=== PATIENT | female | born 2000 | race Caucasian/White ===

== ENCOUNTER 2018-07-14 13:09 | Emergency (ER) | payer MEDICAID ==
[~2018-07-14] VITALS: Ht 152.4 cm; Wt 53.4 kg
[2018-07-14 13:19] VITALS: Ht 152.4 cm; Wt 53.4 kg
--- NOTE | 2018-07-14 17:04 | ERD ---
ER Documentation Chief Complaint Chief Complaint Complina of nose bleed and abdominal pain x 2 days ROS All systems reviewed and are negative except as per history of present illness. Medications Home Meds Active Scripts [id number] ( 19) 1 Each Tablet, 1 TAB PO DAILY, #30 TAB Prov:JIM MUELLER MD 07/14/18 PMhx/Soc Medical and Surgical Hx: pt denies Medical Hx, pt denies Surgical Hx FmHx Family History: No diabetes, No coronary disease Physical Exam Vitals Vital Signs Date Temp Pulse Resp B/P (MAP) Pulse Ox O2 O2 Flow FiO2 Time Delivery Rate 07/14/18 98.5 86 20 119/56 98 13:19 (77) Physical Exam Const: No acute distress Head: Atraumatic Eyes: Normal Conjunctiva ENT: Normal External Ears, Nose and Mouth. Neck: Full range of motion. No meningismus. Resp: Clear to auscultation bilaterally Cardio: Regular rate and rhythm, no murmurs Abd: Soft, non tender, non distended. Normal bowel sounds Skin: No petechiae or rashes Back: No midline or flank tenderness Ext: No cyanosis, or edema Neur: Awake and alert Psych: Normal Mood and Affect Result Diagram: 07/14/18 1714 07/14/18 1714 Results 24 hrs Laboratory Tests Test 07/14/18 17:13 07/14/18 17:14 Bedside Urine pH (LAB) 6.0 Bedside Urine Protein (LAB) Trace Bedside Urine Glucose (UA) Negative Bedside Urine Ketones (LAB) Negative Bedside Urine Blood 1+ Bedside Urine Nitrite (LAB) Negative Bedside Urine Leukocyte Esterase (L Trace White Blood Count 9.7 10^3/ul Red Blood Count 4.54 10^6/ul Hemoglobin 13.6 g/dl Hematocrit 40.0 % Mean Corpuscular Volume 88.1 fl Mean Corpuscular Hemoglobin 30.0 pg Mean Corpuscular Hemoglobin Concent 34.0 g/dl Red Cell Distribution Width 12.5 % Platelet Count 324 10^3/UL Mean Platelet Volume 9.2 fl Immature Granulocytes % 0.500 % Neutrophils % 63.9 % Lymphocytes % 27.1 % Monocytes % 6.4 % Eosinophils % 1.7 % Basophils % 0.4 % Nucleated Red Blood Cells % 0.0 /100WBC Immature Granulocytes # 0.050 10^3/ul Neutrophils # 6.2 10^3/ul Lymphocytes # 2.6 10^3/ul Monocytes # 0.6 10^3/ul Eosinophils # 0.2 10^3/ul Basophils # 0.0 10^3/ul Nucleated Red Blood Cells # 0.0 10^3/ul Sodium Level 140 mmol/L Potassium Level 4.0 mmol/L Chloride Level 104 mmol/L Carbon Dioxide Level 27 mmol/L Anion Gap 9 Blood Urea Nitrogen 16 mg/dl Creatinine 0.49 mg/dl Est Glomerular Filtrat Rate mL/min > 60 mL/min Glucose Level 98 mg/dl Calcium Level 9.8 mg/dl POC Beta HCG, Qualitative POSITIVE Beta HCG, Quantitative 72.1 mIU/ml Departure Diagnosis: Primary Impression: Additional Impression: Pelvic pain affecting Condition: Stable Additional Instructions: Muchas tin por [facility] para neri servicio. Esperamos que en neri visita a la julián de emergencia neri problema medico haya sido solucionado y que se sienta mucho mejor. Para estar seguros que neri mejoria sigue en proceso, le pedimos el favor de hacer rhonda mariama de seguimiento medico con neri doctor primario en los proximos 2-4 josue. Lleve con usted estos documentos y las medicinas recetadas. Si isis sintomas empeoran, NO SE ESPERE, por favor regrese a julián de emergencia INMEDIATAMENTE. En scottie que usted no tenga un mdico de atencin primaria: Llame al mdico o clnica comunitaria de referencia que aparece abajo chloe las horas de consultorio para hacer rhonda mariama para que le vean. CLINICAS: [facility] [phone] [facility] [phone] [facility] [phone] [facility] [phone] [facility] [phone] [id number] [facility] [phone] JIM PADILLA MD Jul 14, 2018 17:04
[2018-07-14] MEDS ORDERED: PNV11TAB PO (19:13)
[2018-07-14 20:12] VITALS: BP 106/61; PULSE 65; RESP 18
== END 2018-07-14 20:14 | disposition home or self-care (01) ==
LOC: FTE 13:09
DX: O26.899 Other specified pregnancy related conditions, unspecified trimester (principal); R10.2 Pelvic and perineal pain; Z3A.00 Weeks of gestation of pregnancy not specified
CPT/HCPCS: 76801; 80048; 81003; 81025; 84702; 85025; Z7502; 99283

== ENCOUNTER 2018-07-19 21:29 | Emergency (ER) | payer SELFPAY ==
[~2018-07-19] VITALS: Wt 52.8 kg
[~2018-07-19 21:29] MED LIST: PNV11TAB PO
== END 2018-07-20 01:30 | disposition left against medical advice (07) ==
LOC: FTE 21:29
DX: Z53.21 Procedure and treatment not carried out due to patient leaving prior to being seen by health care provider (principal)

== ENCOUNTER 2018-11-21 00:45 | Outpatient (CLI) | payer SELFPAY ==
[~2018-11-21] VITALS: Ht 152.4 cm; Wt 54.4 kg
[2018-11-21 01:11] VITALS: BP 91/50; PULSE 77; RESP 18; Ht 152.4 cm; Wt 54.4 kg
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
== END 2018-11-21 03:46 | disposition home or self-care (01) ==
LOC: OBT 00:45 → L-D 00:45 → OBT 03:46
PROVIDERS: ATTEND Obstetrics & Gynecology
DX: O26.892 Other specified pregnancy related conditions, second trimester (principal); M54.9 Dorsalgia, unspecified; Z3A.22 22 weeks gestation of pregnancy
CPT/HCPCS: 76815; 76817; 81001; 86900; 86901; G0463

== ENCOUNTER 2019-03-24 14:07 | Inpatient (IN) | payer MEDICAID ==
[~2019-03-24] VITALS: Ht 152.4 cm; Wt 57.1 kg
[2019-03-24 14:28] VITALS: BP 105/63; PULSE 92; RESP 18
[2019-03-24 14:33] VITALS: Ht 152.4 cm; Wt 57.1 kg
[2019-03-24] MEDS ORDERED: LACTATED RINGER'S 1,000 ML IV PRN (15:23)
[2019-03-24] MEDS ORDERED: IBUPROFEN 600 MG TAB PO PRN (15:30)
[2019-03-24] MEDS ORDERED: METHYLERGONOVINE 0.2 MG INJ IM PRN (15:30)
[2019-03-24] MEDS ORDERED: CARBOPROST 250 MCG INJ IM PRN (15:30)
[2019-03-24] MEDS ORDERED: BUTORPHANOL 2 MG INJ IV PRN (15:30)
[2019-03-24] MEDS ORDERED: LIDOCAINE 1% (MPF) 30 ML INJ INJ PRN (15:30)
[2019-03-24] MEDS ORDERED: OXYTOCIN 30 UNITS/LR 500 ML IV PRN (15:30)
[2019-03-24] MEDS ORDERED: OXYTOCIN 30 UNITS/LR 500 ML IV SCH ×2 (15:30)
[2019-03-24] MEDS ORDERED: MINERAL OIL LIGHT 10 ML VIAL TOP PRN (15:30)
[2019-03-24] MEDS ORDERED: MISOPROSTOL 200 MCG TAB PR PRN (15:30)
[2019-03-24] MEDS: LACTATED RINGER'S 1,000 ML IV SCH (15:43)
[2019-03-24] MEDS ORDERED: AMPICILLIN 2 GM/NS (PMX) 100 ML IVPB ONE (16:00)
[2019-03-24] MEDS: OXYTOCIN 30 UNITS/LR 500 ML IV SCH (17:41)
[2019-03-24] MEDS: AMPICILLIN 1 GM/NS (PMX) 50 ML IVPB SCH (21:37)
[2019-03-25] MEDS: AMPICILLIN 1 GM/NS (PMX) 50 ML IVPB SCH ×5 (02:14→18:22)
[2019-03-25] MEDS: LACTATED RINGER'S 1,000 ML IV SCH ×3 (02:15→19:21)
[2019-03-25] MEDS: OXYTOCIN 30 UNITS/LR 500 ML IV SCH (14:00)
[2019-03-25] MEDS ORDERED: OXYTOCIN 30 UNITS/LR 500 ML IV SCH (21:36)
[2019-03-25 21:40] VITALS: BP 112/67; PULSE 60; RESP 18
[2019-03-25] MEDS ORDERED: METHYLERGONOVINE 0.2 MG INJ IM PRN (22:00)
[2019-03-25] MEDS ORDERED: CARBOPROST 250 MCG INJ IM PRN (22:00)
[2019-03-25] MEDS ORDERED: HYDROCODONE/APAP (5/325) TAB PO PRN (22:00)
[2019-03-25] MEDS ORDERED: WITCH HAZEL/GLYCERIN PAD PR PRN (22:00)
[2019-03-25] MEDS ORDERED: LANOLIN HPA 1 PKT TOP PRN (22:00)
[2019-03-25] MEDS ORDERED: MISOPROSTOL 200 MCG TAB PR PRN (22:00)
[2019-03-25] MEDS ORDERED: OXYTOCIN 30 UNITS/LR 500 ML IV PRN (22:00)
[2019-03-25] MEDS ORDERED: NACL 0.9% 3 ML SYG IV SCH (22:00)
[2019-03-25] MEDS ORDERED: ONDANSETRON 4 MG INJ IV PRN (22:00)
[2019-03-25] MEDS ORDERED: ZOLPIDEM 5 MG TAB PO PRN (22:00)
[2019-03-25] MEDS ORDERED: DIPHENHYDRAMINE 25 MG CAP PO PRN (22:00)
[2019-03-26] VITALS (7 sets, daily range): BP systolic 88–101; BP diastolic 48–58; PULSE 58–87; RESP 14–18
[2019-03-26] MEDS: IBUPROFEN 600 MG TAB PO SCH ×4 (05:57→18:00)
[2019-03-26] MEDS: SENNA/DOCUSATE NA (8.6MG/50MG) TAB PO SCH ×2 (10:09→22:15)
[2019-03-27 04:00] VITALS: BP 98/55; PULSE 54; RESP 17
[2019-03-27] MEDS: IBUPROFEN 600 MG TAB PO SCH ×3 (06:00→13:07)
[2019-03-27 08:30] VITALS: BP 97/55; PULSE 61; RESP 14
[2019-03-27 08:31] VITALS: BP 94/55; PULSE 57
[2019-03-27 08:32] VITALS: BP 100/57; PULSE 56; RESP 14
[2019-03-27] MEDS ORDERED: DIPHTH/TET/ACEL PERTUSS (ADULT) 0.5 ML VIAL IM* ONE (09:00)
[2019-03-27] MEDS ORDERED: MEASLES,MUMPS,RUBELLA VACCINE INJ SC* ONE (09:00)
[2019-03-27] MEDS ORDERED: VARICELLA VACCINE LIVE/PF 1,350 UNIT/0.5 ML ML SC* ONE (09:00)
[2019-03-27] MEDS: SENNA/DOCUSATE NA (8.6MG/50MG) TAB PO SCH (09:53)
== END 2019-03-27 18:45 | disposition home or self-care (01) | DRG 807 ==
LOC: OBT 14:07 → L-D 14:07 → OBT 14:51 → L-D 15:02 → PP1 03-25 21:24
PROVIDERS: ADMIT Obstetrics & Gynecology; ATTEND Obstetrics & Gynecology
PROC: 10E0XZZ Delivery of Products of Conception, External Approach (ICD-10-PCS; principal; 2019-03-25)
PROC: 3E033VJ Introduction of Other Hormone into Peripheral Vein, Percutaneous Approach (ICD-10-PCS; 2019-03-25)
DX: O48.0 Post-term pregnancy (principal); Z37.0 Single live birth; Z3A.40 40 weeks gestation of pregnancy
CPT/HCPCS: 76815; 80307; 85014; 85018; 85025; 85610; 85730; 86592; 86900; 86901; 87340; 90715; 90716; G0463; J0290; J0595; J2590; J7120